=== PATIENT | male | born 2005 | race Caucasian/White ===

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

== ENCOUNTER 2025-01-13 09:18 | Emergency (ER) | payer OTHER, SELFPAY ==
--- NOTE | ~2025-01-13 | XR_ITS ---
EXAMINATION: XR TOES, LEFT CLINICAL INFORMATION: lt small toe injury COMPARISON: None available. TECHNIQUE: AP foot and oblique and lateral view of the fifth ray FINDINGS: No acute fracture or deformity. No degenerative changes. No erosions. XR/XR toe LT min 2V IMPRESSION: Unremarkable left fifth ray. Electronically signed by: Parker Carroll MD 01/13/2025 11:01 AM EDT
--- NOTE | ~2025-01-13 | XR_ITS ---
EXAMINATION: XR ANKLE, left CLINICAL INFORMATION: lt ankle injury COMPARISON: None available. TECHNIQUE: AP, lateral, and mortise views lower extremity joint, ankle. FINDINGS: There is mild widening of the medial clear space. There is mild widening of the syndesmosis. On the AP view, there is no overlap of the distal tibia and fibula. Talar dome is intact. There are no plantar calcaneal enthesiophytes. XR/XR ankle LT min 3V IMPRESSION: There is widening of the syndesmosis and mild widening of the medial clear space concerning for a high ankle sprain. Electronically signed by: Parker Carroll MD 01/13/2025 10:59 AM EDT
[2025-01-13 09:45] VITALS: BP 121/73; PULSE 69; RESP 16; TEMP 36.6; O2SAT 99; BMI 34.2
--- NOTE | 2025-01-13 11:55 | ED.GENADULT ---
HPI - General Adult General Chief complaint: Extremity Injury, Lower Stated complaint: l ankle inj Time Seen by Provider: 01/13/25 11:48 Source: patient, RN notes reviewed and old records reviewed Mode of arrival: ambulatory Limitations: no limitations History of Present Illness ED Provider: Keira GLASS narrative: 19-year-old male presents for evaluation of left ankle pain and toe pain. He was playing basketball yesterday when he landed on his left ankle and describes an inversion twisting injury. Denies head strike. He also complains of left 5th toe pain His pain is a 610 Related Data Home Medications ?Medication ?Instructions ?Recorded ?Confirmed No Known Home Meds 11/08/21 11/08/21 Allergies Allergy/AdvReac Type Severity Reaction Status Date / Time No Known Allergies (No Known Allergy Verified 01/13/25 09:48 Allergies*) Review of Systems Constitutional: Constitutional: Denies chills, Denies fever(s) and Denies headache(s) ENT: Denies headache(s) Cardiovascular: Cardiovascular: Denies chest pain Musculoskeletal: Musculoskeletal: Reports arthralgias, Reports joint swelling and Reports limited range of motion Integumentary/Breasts: Skin/Breast: Reports unusual bruising Neurologic: Denies headache(s) PMFSH Social History Social History Current occupational status: employed Current occupation: [employer] Physical Exam ED Vital Signs: Vital Signs - 24 hr 01/13/25 09:45 Temperature 97.8 F Pulse Rate 69 Respiratory Rate 16 Blood Pressure 121/73 Pulse Oximetry 99 Oxygen Delivery Method Room Air BMI result Body Mass Index 34.2 Const General: healthy appearing, comfortable, no acute distress, alert and awake Nutritional Appearance: well nourished Orientation/consciousness: patient oriented x3 HENMT Head: Yes normocephalic and Yes atraumatic Eyes Eyelids: Yes eyelids normal Conjunctivae: conjunctivae normal Sclerae: sclerae normal Corneas: corneas normal Pupils: Equal, round and reactive pupils present EOM: EOMs intact bilaterally Neck Neck: Yes full ROM Resp Effort & Inspection: normal respiratory effort, able to speak in complete sentences and not labored Skin General skin exam: elasticity normal Neuro General: patient oriented x3 Cranial nerves: Yes Equal, round and reactive pupils present and Yes Bilaterally intact EOM present Cognition (Neuro): normal cognition Extrem Other: There is mild edema with ecchymosis to the left lateral mid foot and left lateral ankle over the lateral malleolus. No obvious deformities. The patient is able to bear weight. No tenderness over the Achilles region. No calf tenderness Medical Decision Making Medical Decision Making MDM Narrative: 19-year-old male presents for evaluation of left ankle and foot pain after twisting his foot yesterday while playing basketball. X-rays are negative for fracture. I wrapped his ankle with an Altaf wrap and he will be discharged with symptomatic care. Instructions were discussed with the patient Differential Diagnosis Differential Diagnoses: The differential diagnosis associated with the presentation includes Ankle sprain Contusion Fracture Dislocation Independent Interpretation I performed an independent interpretation of an: Plain X-Ray Interpretation: Agree with Radiology interpretation Radiology Impression Discussion of test interpretation with radiology: I have reviewed the radiologist's reading. Radiologist Impression: FINDINGS: There is mild widening of the medial clear space. There is mild widening of the syndesmosis. On the AP view, there is no overlap of the distal tibia and fibula. Talar dome is intact. There are no plantar calcaneal enthesiophytes. XR/XR ankle LT min 3V IMPRESSION: There is widening of the syndesmosis and mild widening of the medial clear space concerning for a high ankle sprain. Electronically signed by: Parker Carroll MD 01/13/2025 10:59 AM EDT RP FINDINGS: No acute fracture or deformity. No degenerative changes. No erosions. XR/XR toe LT min 2V IMPRESSION: Unremarkable left fifth ray. Electronically signed by: Parker Carroll MD 01/13/2025 11:01 AM EDT RP Discharge Plan Discharge Clinical Impression: Ankle sprain and strain Patient Disposition: Home, Self-Care Instructions: Ankle Sprain (ED) Additional Instructions: Your x-ray did not show any fractures. There was widening of the ankle joint consistent with a high ankle sprain. Ice the area every 4 hours for 10-15 minutes. Elevate the leg above your heart while resting You may use the Altaf wrap for comfort. Follow-up with your primary doctor, return for new or worsening symptoms Prescriptions: No Action No Known Home Meds Stand Alone Forms: Work/School Release Print Language: Luxembourgish
[2025-01-13 12:07] VITALS: BP 121/73; PULSE 69; RESP 16; TEMP 36.6; O2SAT 99
--- OUTSIDE RECORDS SUMMARY | 2025-01-13 12:53 | XMS_ITS | Clinical Summary ---
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 30 tablet 11 02/25/2024 02/25/20 25 Active Active Problems Problem Noted Date Diagnosed Date Vitamin D insufficiency 06/23/2022 Overview (06/23/2022): 06/23/2022 Vitamin D low at 16.2. Start Vitamin D 2000 IU daily, then repeat level in 8 weeks. BMI 35.0-35.9,adult 06/22/2022 Elevated blood pressure reading 06/22/2022 Overview (06/22/2022): 06/22/2022 BP elevated today. Patient left before repeat was performed. Sent for labs. Follow up with labs and schedule patient to have repeat readings done. No h/o elevated blood pressures in the past but does have elevated BMI. Assessment & Plan (01/15/2024 1:49 PM EDT): BP WNL today, encouraged continued physical activity and lifestyle modifications for weight loss. Follow up with adult medicine next year. Assessment & Plan (06/22/2022 3:29 PM EST): Initial BP elevated today (162/103). Patient left before repeat was performed. Sent for labs. Follow up with labs and schedule patient to have repeat readings done. No h/o elevated blood pressures in the past but does have elevated BMI. 3:30pm: Patient returned and repeat BP wnl 128/78. Will continue to monitor. Overweight 03/29/2018 Assessment & Plan (03/06/2019 9:30 AM EDT): BMI decreased from last year. 34 -> 32.8. Resolved Problems Problem Noted Date Diagnosed Date Resolved Date Closed disp fracture of base of fourth metacarpal bone of left hand 10/31/2021 01/15/2024 Overview (06/02/2022): Images from the original note were not included. H/O arthroscopy of left knee 04/14/2020 05/18/2021 Immunizations Immunization Administration Dates Next Due DTaP 5 07/22/2007, 6,01/04/2004,10/05,2003 HPV Vaccine 9 Valent 03/01/2017,10/28/2015 Hep A, ped/adol 08/12/2014,01/13/2011 Hep B, ped/adol 03/15/2004,01/04/2004,2003 Hib (HbOC) 01/04/2004 Hib (PRP-T) 03/28/2006,2003,2003 IPV 07/22/2007, 4,2003,08/07 Influenza, injectable, quadrivalent 08/12/2014 Influenza, injectable, quadr ivalent, preservative free 03/29/2018 Influenza, injectable, trivalent 07/22/2007 Influenza, intranasal, trivalent 08/28/2012,1207/2007 MMR 06/23/2004 MMRV 07/22/2007 Meningococcal Conj (Menactra) MCV4P 04/14/2020,0 08/12/2014 Pneumococcal Conjugate 10/05/2004,03/15/2004, Tdap 01/15/2024,08/12/2014 Varicella 06/23/2004 Family History Medical History Relation Name Comments No Known Problems Half-Brother Megan Lares No Known Problems Half-Sister Ortega Curry Thyroid disease Mother Rosalie Cuba No Known Problems Sister Mango Relation Name Status Comments Half-Brother Megan Lares Alive Half brothe r (M): Alive and well Half-Sister Ortega Curry Alive Half sister ( M): Alive and well Mother Rosalie Cuba Alive Mother: Hypoth yroidism Other Family history of Asthma, Family history of Elevated cholesterol, Family history of Diabetes mellitus Sister Mango Alive Sister: Alive a nd well Social History Tobacco Use Types Packs/Day Years Used Date Smoking Tobacco: Never Smokeless Tobacco: Never Tobacco Cessation:Counseling Given: Not Answered Comments:Never smoker Alcohol Use Standard Drinks/Week Comments Not Currently 0 (1 standard drink = 0.6 oz pure alcohol) has tried ETOH once or twice; CRAFFT negative Hunger/Food Answer Date Recorded In the last 12 months, did y ou or your family ever eat less than you felt you should because there wasn't enough money for food? No 01/15/2024 Stable Housing Answer Date Recorded Are you worried that in the next 2 months you may not have stable housing? No 01/15/2024 Transportation Concerns Answer Date Rec orded In the last 12 months, have you or your family ever had to go without healthcare because you didn't have a way to get there? No 01/15/2024 Hazards in Home Answer Date Recorded Think about the place you li ve. Do you have problems with any of the following? Pests (mice or roaches), mold, no/not working smoke detectors, water leaks, no window guards. No 2023 Financing Utilities Answer Date Recorde d In the last 12 months, has t he electric, gas, oil, or water company threatened to shut off your services in your home? No 01/15/2024 Safety at Home Answer Date Recorded Are you or your family worried about feeling saf e in your home? No 01/15/2024 Outside Support Answer Date Recorded Do you feel that you need mo re support from other people or programs to help you care for yourself or your family? No 01/15/2024 Understanding Health Concerns Answer Da te Recorded Do you need help understandi ng your or your child's healthcare needs (diagnosis, medications, plan, etc.)? No 01/15/2024 Financing Health Concerns Answer Date R ecorded In the last 12 months, was t here a time when your child needed to see a doctor or get medications or supplies but could not because of cost? No 01/15/2024 Missing School or Work Answer Date Soham rded Did you or your child miss s chool or work because of a health problem that could have been avoided? No 01/15/2024 Child Education Answer Date Recorded Do you have concerns about y our/your child's learning or behavior in school, preschool, or daycare? No 01/15/2024 Sex and Gender Information Value Date Recorded Sex Assigned at Male 03/06/2019 9:36 AM EDT Legal Sex Male 5:11 PM EDT Gender Identity Male 03/06/2019 9:36 AM EDT Sexual Orientation Straight 03/06/2019 9: 36 AM EDT Last Filed Vital Signs Vital Sign Reading Time Taken Comments Blood Pressure 129/79 01/15/2024 1:14 PM EDT Pulse 60 01/15/2024 1:14 PM EDT Temperature 36.3 C (97.4 F) 01/15/2024 1:14 PM EDT Respiratory Rate - - Oxygen Saturation 99% 03/01/2011 12:00 AM EDT Inhaled Oxygen Concentration - - Weight 104 kg (230 lb) 01/15/2024 1:14 PM EDT Height 172.1 cm (5' 7.75 ) 01/15/2024 1:14 PM ED T Body Mass Index 35.23 01/15/2024 1:14 PM EDT Plan of Treatment Health Maintenance Due Date Last Done Comments Men B Vaccine (1 of 2 - Standard) 2019 COVID-19 Vaccine ( - 2023-2 5 season) 2024 Influenza Vaccines (#1) 2025 03/29/20 18, 08/12/2014, 08/28/2012, Additional history exists DTaP,Tdap,and Td Vaccines (8 - Td or Tdap) 01/14/2034 01/15/2024, 08/12/2014, 07/22/2007, Additional history exists Hepatitis B Vaccines Completed 03/15/2004, 01/04/2004, 2003 Pneumococcal Vaccine Completed 10/05/2004, 03/15/2004, 2003 HIB Vaccines Completed 03/28/2006, 12/08, 2003, Additional history exists IPV Vaccines Completed 07/22/2007, 0 01/2004, 2003, Additional history exists MMR Vaccines Completed 07/22/2007, 06/23/2004 Varicella Vaccines Completed 07/22/2007, 06/23/2004 Hepatitis A Vaccines Completed 08/12/2014, 01/14/20 11 HPV Vaccines Completed 03/01/2017, 10/28/2015 Meningococcal Vaccine Completed 04/14/2020, 015
== END 2025-01-13 12:08 | disposition home or self-care (01) ==
PROVIDERS: Emergency Provider Emergency Medicine Emergency Medical Services
DX: S93.402A Sprain of unspecified ligament of left ankle, initial encounter (principal); S96.912A Strain of unspecified muscle and tendon at ankle and foot level, left foot, initial encounter; X50.1XXA Overexertion from prolonged static or awkward postures, initial encounter; Y93.67 Activity, basketball; Y92.310 Basketball court as the place of occurrence of the external cause; Y99.8 Other external cause status
CPT/HCPCS: 73610; 73660; 99282; 99283

== ENCOUNTER → 2025-01-13 09:46 | Outpatient (BNV) | payer OTHER, SELFPAY | PROVIDERS: Emergency Provider Emergency Medicine Emergency Medical Services; Visit Provider Radiology Diagnostic Radiology | DX: S99.912A Unspecified injury of left ankle, initial encounter (principal); S90.935A Unspecified superficial injury of left lesser toe(s), initial encounter | CPT/HCPCS: 73610; 73660 ==